=== PATIENT | female | born 1940 | race Caucasian/White ===

== ENCOUNTER 2020-07-14 16:52 | Emergency (ER) | payer OTHER, MEDICARE ==
[2020-07-14 17:08] VITALS: BP 139/65; PULSE 76; TEMP 99.2; BMI 31.1
[2020-07-14] MEDS ORDERED: ONDANSETRON 4 MG/2 ML VIAL IVPUSH ONE (17:58)
[2020-07-14] MEDS ORDERED: LACTATED RINGERS SOLUTION 1,000 ML/1,000 ML INFUS.BAG IV STA (17:58)
[2020-07-14] MEDS ORDERED: ACETAMINOPHEN 1000 MG/100 ML VIAL (NON FORMULARY) IVPB ONE (17:58)
[2020-07-14 18:37] LABS: HEMATOCRIT 37.5 % (32.4-45.2); HEMOGLOBIN 12.6 GM/dl (10.7-15.3); LYMPH % 7.1 % (8-40); MCH 28.6 pg (25.7-33.7); MCHC 33.6 g/dl (32.0-36.0); MEAN CELL VOLUME 85.1 fl (80-96); MEAN PLT VOLUME 12.2 fl (7.5-11.1); MONO % 8.3 % (3.8-10.2); NEUT % 82.6 % (42.8-82.8); PLATELET COUNT 206 K/MM3 (134-434); RBC 4.41 M/mm3 (3.60-5.2); WHITE BLOOD COUNT 15.1 K/mm3 (4.0-10.8)
[2020-07-14 18:47] LABS: MAGNESIUM 1.7 mg/dL (1.8-2.4); PHOSPHOROUS 4.5 mg/dl (2.5-4.9)
[2020-07-14 18:47] LABS: ALBUMIN 3.4 g/dl (3.4-5.0); BILIRUBIN,TOTAL 0.7 mg/dl (0.2-1); CALCIUM 7.2 mg/dl (8.5-10); CREATININE 1.1 mg/dl (0.55-1.3); TOT PROT 7.4 g/dl (6.4-8.2)
[2020-07-14] MEDS ORDERED: FLUCONAZOLE 100 MG TABLET (UD) PO ONE (19:57)
[2020-07-14] MEDS ORDERED: MAGNESIUM OXIDE 400 MG TABLET (FP) PO ONE (20:13)
[2020-07-14] MEDS ORDERED: CALCIUM GLUCONATE 10% - 1,000 MG/10 ML VIAL IVPB ONE (20:13)
[2020-07-14] MEDS ORDERED: CALCIUM GLUCONATE 10% - 1,000 MG/10 ML VIAL ONE (20:59)
[2020-07-14] MEDS ORDERED: FLUCONAZOLE 150 MG TABLET PO ONE (20:59)
[2020-07-14] MEDS ORDERED: FLUCONAZOLE 50 MG TABLET PO ONE (21:14)
== END 2020-07-14 22:31 | disposition home or self-care (01) ==
LOC: FER 16:52
PROC: 3E0333Z Introduction of Anti-inflammatory into Peripheral Vein, Percutaneous Approach (ICD-10-PCS; principal; 2020-07-14)
PROC: 3E033GC Introduction of Other Therapeutic Substance into Peripheral Vein, Percutaneous Approach (ICD-10-PCS; 2020-07-14)
PROC: 3E0337Z Introduction of Electrolytic and Water Balance Substance into Peripheral Vein, Percutaneous Approach (ICD-10-PCS; 2020-07-14)
DX: B37.0 Candidal stomatitis (principal); E86.0 Dehydration
CPT/HCPCS: 36415; 71045-TC-FY; 80053; 83735; 84100; 85025; 93005; 99285-25; C9803; J0131; U0003; U0005

== ENCOUNTER 2021-02-20 13:40 | Emergency (ER) | payer OTHER, MEDICARE ==
[2021-02-20 14:07] VITALS: BP 136/63; PULSE 65; TEMP 98.8; BMI 30.1
== END 2021-02-20 15:39 | disposition home or self-care (01) ==
LOC: FER 13:40
DX: S22.31XA Fracture of one rib, right side, initial encounter for closed fracture (principal); S40.011A Contusion of right shoulder, initial encounter; W19.XXXA Unspecified fall, initial encounter
CPT/HCPCS: 71101-TC-RT-FY; 73030-TC-RT-FY; 99284-25

== ENCOUNTER 2024-01-17 10:50 | Emergency (ER) | payer OTHER, MEDICARE ==
[2024-01-17] MEDS ORDERED: ACETAMINOPHEN 325 MG TABLET (FP) ONE (11:56)
[2024-01-17 12:04] LABS: URINE COLOR YELLOW
[2024-01-17 12:05] LABS: URINE APPEARANCE CLEAR; URINE BILIRUBIN NEGATIVE (NEGATIVE); URINE GLUCOSE (UA) NEGATIVE (NEGATIVE); URINE KETONE NEGATIVE (NEGATIVE); URINE LEUK ESTERASE 1+ (NEGATIVE); URINE NITRITE NEGATIVE (NEGATIVE); URINE PROTEIN 1+ (NEGATIVE); URINE RBC 0-2 /hpf (0-4); URINE UROBILINOGEN 0.2 (0.2-1.0)
[2024-01-17 12:06] LABS: EPI CELLS FEW /HPF
[2024-01-17] MEDS: ACETAMINOPHEN 325 MG TABLET (FP) PO ONE (12:09)
[2024-01-17 12:22] LABS: HEMATOCRIT 33.5 % (32.4-45.2); MCH 29.8 pg (25.7-33.7); MCHC 32.9 g/dl (32.0-36.0); MEAN CELL VOLUME 90.5 fl (80-96); PLATELET COUNT 154.7 10^3/uL (134-434); RDW 16.3 % (11.6-15.6)
[2024-01-17 12:33] LABS: ALBUMIN 3.9 g/dl (3.4-5.0); ALK PHOS 42 U/L (45-117); ANION GAP 5 mmol/L (4-13); BILIRUBIN,TOTAL 0.5 mg/dl (0.2-1); CALCIUM 10.2 mg/dl (8.5-10.1); CHLORIDE 101 mmol/L (98-107); CO2 30 mmol/L (21-32); CREATININE 1.6 mg/dl (0.6-1.3); GLUCOSE,RANDOM 204 mg/dl (74-106); POTASSIUM 3.6 mmol/L (3.5-5.1); SGOT/AST 35 U/L (15-37); SGPT/ALT 23 U/L (7-52); SODIUM 136 mmol/L (136-145); TOT PROT 6.6 g/dl (6.4-8.2)
[2024-01-17 16:01] VITALS: BP 132/59; PULSE 77; RESP 18; TEMP 97.9; BMI 24.1
== END 2024-01-17 14:00 | disposition home or self-care (01) ==
LOC: FER 10:50
DX: N39.0 Urinary tract infection, site not specified (principal); L25.9 Unspecified contact dermatitis, unspecified cause; R21 Rash and other nonspecific skin eruption; R06.02 Shortness of breath; F41.9 Anxiety disorder, unspecified; R35.0 Frequency of micturition
CPT/HCPCS: 36415; 80053; 81003; 85027; 87086; 93005; 93010; 99283-25

== ENCOUNTER 2024-04-13 12:25 | Emergency (ER) | payer OTHER, MEDICARE ==
[2024-04-13 12:37] VITALS: BP 146/91; PULSE 63; RESP 18; TEMP 98.1; BMI 25.4
[2024-04-13] MEDS ORDERED: ACETAMINOPHEN 325 MG TABLET (FP) ONE (12:54)
[2024-04-13] MEDS: ACETAMINOPHEN 325 MG TABLET (FP) PO ONE (12:56)
== END 2024-04-13 14:20 | disposition home or self-care (01) ==
LOC: FER 12:25
DX: M25.562 Pain in left knee (principal); R51.9 Headache, unspecified; W01.198A Fall on same level from slipping, tripping and stumbling with subsequent striking against other object, initial encounter
CPT/HCPCS: 70450-TC; 72125-TC; 73562-TC-LT-FY; 99284-25